=== PATIENT | male | born 1955 | race African-American/Black ===

== ENCOUNTER → 2016-10-03 | Day surgery (SDC) | payer OTHER ==
[~2016-10-03] MED LIST: ACCUPRIL10 MG PO; ALLOPURINOL 30300 MG PO; ALLOPURINOL300 MG PO; APRESOLINE100 MG PO; ASPIRIN EC81 MG PO; CARDIZEM CD180 MG PO; COLESTID 1GM TAB1 GM PO; CORTAID28 GM TOP; CYMBALTA 30MG C30 MG PO; DICLOFENAC SODI75 MG PO; FLOMAX0.4 MG PO; FLONASE ALLER15.8 ML INH; HABITROL14 MG TOP; HUMALOG100 UNIT/3 SQ; HUMULIN N100 UNIT/1 SQ; HUMULIN R100 UNIT/1 SQ; HYDRALAZINE25 MG PO; ISOSORBIDE MON120 MG PO; LANTUS SOL100 UNIT/1 SQ; LATUDA40 MG PO; LIPITOR40 MG PO; LOVAZA1 GM PO; MELATONIN 3 MG1 EACH PO; MINIPRES1 MG PO; NEURONTIN400 MG PO; NITROQUIK SL0.4 MG SL; NORVASC5 MG PO; PRILOSEC20 MG PO; PRILOSEC40 MG PO; PRINIVIL20 MG PO; PROPECIA1 MG PO; PROVIGIL100 MG PO; SAPHRIS10 MG PO; SILVADENE20 GM TOP; SINGULAIR10 MG PO; SUDAFED 12 HOU120 MG PO; TRAZODONE 100M100 MG PO; TRIAMTERENE-HC1 EAC3 PO; VITAMIN D2000 UNI1 PO; ZANTAC150 MG PO
[2016-10-03 09:09] LABS: HCT 42.5 % (42.0-52.0); HGB 15.3 g/dl (13.2-18.0); MCH 31.7 pg (25.0-31.0); MCV 88.2 fL (78.0-100.0); MPV 10.7 fL (6.0-9.5); RBC 4.82 M/uL (4.70-6.00); RDW 14.9 % (11.5-14.0); WBC 7.5 K/uL (4.0-10.5)
[2016-10-03 09:39] LABS: CREATININE 1.2 mg/dL (0.7-1.2); GLOBULIN (CALCULATION) 2.4 g/dL (2.2-4.2); POTASSIUM 3.8 mmol/L (3.5-5.1); TOTAL PROTEIN 6.4 g/dL (6.4-8.3)
== END | disposition home or self-care (01) ==
LOC: FAS 07:43
PROVIDERS: Surgery
DX: D17.39 Benign lipomatous neoplasm of skin and subcutaneous tissue of other sites (principal); G47.33 Obstructive sleep apnea (adult) (pediatric); K21.9 Gastro-esophageal reflux disease without esophagitis; E11.22 Type 2 diabetes mellitus with diabetic chronic kidney disease; N18.9 Chronic kidney disease, unspecified; F31.9 Bipolar disorder, unspecified; M19.90 Unspecified osteoarthritis, unspecified site; F17.210 Nicotine dependence, cigarettes, uncomplicated; F41.9 Anxiety disorder, unspecified; I13.0 Hypertensive heart and chronic kidney disease with heart failure and stage 1 through stage 4 chronic kidney disease, or unspecified chronic kidney disease; I50.9 Heart failure, unspecified; I25.119 Atherosclerotic heart disease of native coronary artery with unspecified angina pectoris; E78.5 Hyperlipidemia, unspecified; M06.9 Rheumatoid arthritis, unspecified; Z99.89 Dependence on other enabling machines and devices; Z88.2 Allergy status to sulfonamides; Z88.8 Allergy status to other drugs, medicaments and biological substances; Z79.899 Other long term (current) drug therapy; Z90.49 Acquired absence of other specified parts of digestive tract; Z98.890 Other specified postprocedural states; Z79.82 Long term (current) use of aspirin; Z79.4 Long term (current) use of insulin
CPT/HCPCS: 36415; 80053; 88304; J1170; J2704; J3010

== ENCOUNTER 2020-06-20 23:08 | Emergency (ER) | payer OTHER ==
[~2020-06-20 23:08] MED LIST changes: +ATORVASTATIN CA80 MG PO; +LATUDA80 MG PO; +LOPRESSOR25 MG PO; +NOVOLIN R100 UNIT/1 SC
[2020-06-21] MEDS ORDERED: CYCLOBENZAPRINE10 MG PO (00:03)
== END 2020-06-21 00:18 | disposition home or self-care (01) ==
LOC: FER 23:08
DX: S39.012A Strain of muscle, fascia and tendon of lower back, initial encounter (principal); E11.9 Type 2 diabetes mellitus without complications; I10 Essential (primary) hypertension; F17.210 Nicotine dependence, cigarettes, uncomplicated; Z88.2 Allergy status to sulfonamides; W01.0XXA Fall on same level from slipping, tripping and stumbling without subsequent striking against object, initial encounter; Y92.009 Unspecified place in unspecified non-institutional (private) residence as the place of occurrence of the external cause
CPT/HCPCS: 72040; 72100

== ENCOUNTER 2021-07-05 14:56 | Emergency (ER) | payer OTHER ==
[~2021-07-05 14:56] MED LIST changes: +CYCLOBENZAPRINE10 MG PO
[2021-07-05 15:47] LABS: ALBUMIN 3.8 g/dL (3.4-5.0); BILIRUBIN - TOTAL 1.3 mg/dL (0.2-1.0); BUN/CREAT RATIO (CALC) 16.1 RATIO; CREATININE 1.12 mg/dL (0.67-1.17); GLOBULIN (CALCULATION) 3.4 g/dL; POTASSIUM 3.8 mmol/L (3.5-5.1); TOTAL PROTEIN 7.2 g/dL (6.4-8.2)
[2021-07-05 16:06] LABS: BASOPHIL 0.2 % (0-2); EOSINOPHIL 0 % (0-5); HCT 47.7 % (42.0-52.0); HGB 16.6 g/dl (13.2-18.0); LYMPHOCYTE 2.5 % (15-48); MCH 31.2 pg (25.0-31.0); MCHC 34.8 g/dL (32.0-36.0); MCV 89.7 fL (78.0-100.0); MONOCYTE 2.8 % (0-12); MPV 11.1 fL (6.0-9.5); NEUTROPHIL 94.1 % (41-80); NRBC 0; PLT 204 K/uL (150-400); RBC 5.32 M/uL (4.70-6.00); RDW 13.8 % (11.5-14.0)
[2021-07-05 16:10] LABS: WBC 16.9 K/uL (4.0-10.5)
[2021-07-05] MEDS ORDERED: PERCOCET 5-3251 EACH PO (17:48)
[2021-07-05] MEDS ORDERED: NAPROXEN500 MG PO (17:48)
== END 2021-07-05 18:45 | disposition home or self-care (01) ==
LOC: FER 14:56
PROVIDERS: Internal Medicine
DX: S22.41XA Multiple fractures of ribs, right side, initial encounter for closed fracture (principal); S00.01XA Abrasion of scalp, initial encounter; E11.65 Type 2 diabetes mellitus with hyperglycemia; I25.10 Atherosclerotic heart disease of native coronary artery without angina pectoris; I10 Essential (primary) hypertension; Z88.1 Allergy status to other antibiotic agents; F17.210 Nicotine dependence, cigarettes, uncomplicated; V49.40XA Driver injured in collision with unspecified motor vehicles in traffic accident, initial encounter
CPT/HCPCS: 36415; 70450; 71045; 71250; 72125; 80053; 85025; 94010; J1170; J2405

== ENCOUNTER 2021-10-30 13:49 | Emergency (ER) | payer OTHER ==
[~2021-10-30 13:49] MED LIST changes: +NAPROXEN500 MG PO; +PERCOCET 5-3251 EACH PO
[2021-10-30 14:48] LABS: BASOPHIL 0.6 % (0-2); HGB 17.2 g/dl (13.2-18.0); INR 0.92 (0.9-1.2); LYMPHOCYTE 14.9 % (15-48); MCH 31.3 pg (25.0-31.0); MCHC 35.1 g/dL (32.0-36.0); MCV 89.3 fL (78.0-100.0); MONOCYTE 5.4 % (0-12); MPV 11.2 fL (6.0-9.5); NRBC 0; PLT 191 K/uL (150-400); PROTHROMBIN TIME 11.8 SECONDS (11.8-13.4); RBC 5.49 M/uL (4.70-6.00); RDW 13.2 % (11.5-14.0); WBC 6.4 K/uL (4.0-10.5)
[2021-10-30 15:03] LABS: ALBUMIN 3.3 g/dL (3.4-5.0); BILIRUBIN - TOTAL 0.7 mg/dL (0.2-1.0); BUN/CREAT RATIO (CALC) 7.8 RATIO; CREATININE 1.16 mg/dL (0.67-1.17); POTASSIUM 4.1 mmol/L (3.5-5.1); TOTAL PROTEIN 6.3 g/dL (6.4-8.2)
== END 2021-10-30 15:35 | disposition other institution (70) ==
LOC: FER 13:49
PROVIDERS: Emergency Medicine
DX: I63.9 Cerebral infarction, unspecified (principal); R26.2 Difficulty in walking, not elsewhere classified; R47.89 Other speech disturbances; R29.704 NIHSS score 4; I10 Essential (primary) hypertension; F17.210 Nicotine dependence, cigarettes, uncomplicated; Z88.1 Allergy status to other antibiotic agents; Z88.2 Allergy status to sulfonamides; Z91.013 Allergy to seafood
CPT/HCPCS: 36415; 70450; 71045; 80053; 84484; 85025; 85610; J2997